=== PATIENT | male | born 1975 | race Caucasian/White ===

== ENCOUNTER 2024-08-12 09:15 | Outpatient (CLI) | payer BC, SELFPAY ==
--- OUTSIDE RECORDS SUMMARY | 2024-08-12 09:21 | XMS_ITS | Clinical Summary ---
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 Then use as needed for flares once clear. 454 Gram 2 06/10/2023 3:37 PM CDT 4 Active triamcinolone acetonide (KENALOG) 0.1 % Cream Apply to affected areas one to two times daily for up to two consecutive weeks. Then use as needed for flares once clear. 454 Gram 2 4 Active amLODIPine (NORVASC) 10 mg tablet Take 1 Tablet (10 mg) by mouth daily. 90 Tablet 1 01/03/2024 12:48 PM CDT 4 Active eszopiclone (LUNESTA) 2 mg Tablet Take 1 tablet by mouth 30-60 minutes prior to sleep study 1 Tablet 09/22/2023 4:16 PM CDT 4 Active cyclobenzaprine (FLEXERIL) 10 mg tablet Take 1 Tablet (10 mg) by mouth 2 times daily as needed for muscle spasm. 20 Tablet 09/22/2023 4:16 PM CDT 4 Active amLODIPine (NORVASC) 10 mg tablet Take 1 Tablet (10 mg) by mouth daily. 90 Tablet 1 07/01/2024 7:02 PM CDT 5 Active Encounters Date Type Department Care Team Description 08/05/2024 External Device Data [facility] Provider, Abstract 07/01/2024 External Device Data [facility] Provider, Abstract 05/27/2024 External Device Data [facility] Provider, Abstract 05/27/2024 External Device Data [facility] Provider, Abstract 05/24/2024 External Device Data [facility] Provider, Abstract 05/23/2024 External Device Data [facility] Provider, Abstract from Last 3 Months Immunizations Immunization Administration Dates Next Due ([place]Y)(12 YR UP) COVID- 19 VACCINE, MRNA, SPIKE PROTEIN, LNP, GUIDO(PF) 30 MCG/0.3 ML IM SUSP 11/30/2023,04/04/2023 INFLUENZA VACCINE QUADRIVALENT 6 MOS UP PF IM INFLUENZA VACCINE TRIVALENT SPLIT VIRUS, (6 MOS UP), 0.5ML (PF), IM 11/30/2023 Social History Tobacco Use Types Packs/Day Years Used Date Smoking Tobacco: Never Assessed Sex and Gender Information Value Date Recorded Sex Assigned at Not on file 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
[2024-09-02 14:23] VITALS: BMI 31.1
--- NOTE | 2024-09-02 14:23 | WPDHOMESLEEP ---
Sleep Study - Home Unattended Date of Study: 08/12/24 Ordering Provider: Sunshine Mims NP Interpreting Provider: Bernadette Vargas DO Home Sleep Study Type: Watch PAT Height: 1.83 m Weight: 104.326 kg Body Mass Index: 31.1 Neck Circumference (inches): 17 [place]: 0 Reason for Sleep Study snoring Sleep History The patient is a 48-year-old male that had a sleep study ordered by his primary care for evaluation of sleep apnea. The patient admits to snoring loudly and interruptions in breathing while asleep. He does choke or gasp at night. He does have trouble breathing on his back. He denies morning headaches. He does have a dry or sore mouth /throat in the morning. He denies nocturnal heartburn. He denies nocturia. He denies having trouble falling or staying asleep. He denies having trouble returning to sleep if he wakes up throughout the night. He denies any hypnotic or sedative use. He denies feeling anxious about sleep. He does not feel tired or sleepy during the day. He denies feeling tired in the morning. He denies having the urge to fall asleep during the day. He denies feeling drowsy while driving. He denies sleep paralysis, cataplexy and hypnagogic/ hypnopompic hallucinations. He denies clenching or grinding his teeth. He denies kicking or jerking his legs excessively. He denies having a restless feeling in his legs. He goes to bed at 11:30 p.m. on work days and at 1:30 a.m. on his days off. It takes him 15 minutes to fall asleep. He gets 6 hours and 45 minutes of sleep on work days and 9 hours and 45 minutes of sleep on his days off. His sleep is somewhat restorative on days off. He denies taking any planned naps. He denies dream enactment behavior. He denies sleep walking. He currently consumes 1-2 beers per week. He denies tobacco use. He denies recreational drug use. [facility] Family History Family History Father Heart disease, Onset Age: 70 CABG Grandparent Heart disease Grandparent Diabetes mellitus Social History Social History Smoking status: Never smoker Alcohol intake: current Alcohol use details: 1-2 beers per week Substance use: never Medications Home Medications ?Medication ?Instructions ?Recorded ?Confirmed ?Type cetirizine 10 mg tablet (Zyrtec) 10 mg PO DAILY PRN 09/19/23 09/19/23 History cyclobenzaprine 10 mg tablet 10 mg PO BID PRN muscle spasm #20 09/19/23 09/19/23 Rx tabs eszopiclone 2 mg tablet (Lunesta) 2 mg PO QHS #1 tablet 09/19/23 09/19/23 Rx amlodipine 10 mg tablet 10 mg PO DAILY #90 tabs 04/04/24 Rx prednisone 20 mg tablet 40 mg (2 x 20 mg) PO DAILY 5 days 08/31/24 Rx #10 tabs triamcinolone acetonide 0.1 % applic topical 08/31/24 History topical cream Sleep Procedure The sleep study was completed using ReferralMDT a technically adequate device with seven channels: peripheral arterial tone, actigraphy, body position, snore, respiratory movement, pulse oximetry, sleep staging, and heart rate. Prior to using the device, the patient received verbal and written instructions for its application and was provided with the help desk phone number for additional telephonic instruction with 24-hour availability of qualified personnel to answer questions. The study was scored using CMS guidelines. Sleep Architecture The total recording time is 6 hrs, 52 min. The total sleep time is 6 hrs, 26 min. Sleep latency is 15 minutes. REM latency is 45 minutes. The patient had 3 episodes of waking. Sleep architecture shows 18.1% deep sleep, 48.1% light sleep, and (as % Total Sleep Time) showed NREM (Light 48.1%; Deep 18.1%), and a 33.7% stage REM. The patient spent 68.1% of total sleep time in the supine position. Sleep efficiency was 93.69. Respiratory Analysis The overall AHI (pAHI 4%:) is 11.6. The overall AHI (pAHI 3%:) is 19.5. The central AHI is 0.6. The AHI was 8.4 in NREM and 41.1 in REM sleep. The AHI was 20.9 in Supine and 16.4 in Non-supine sleep. Percent of Samir Truong respirations is 0.0. Oximetry Data The oxygen desaturation index (TAMMY 4%:) is 13.2. The mean saturation is 94%, and the lowest saturation is 79%. Time spent with saturation < 88% is 2.1 minutes. Snoring Profile Snoring average intensity is 51 dB. The patient snored above 45 decibels for 246.3 minutes, 63.7% of sleep time. Cardiac Profile The average pulse rate is 58 beats per minutes. The lowest pulse rate is 48 bpm. The highest pulse rate reported is 96 bpm. Atrial fibrillation was not detected. Premature beats occur 0.1 per minute. Assessment and Plan Assessment and Plan (1) ERNIE (obstructive sleep apnea): Code(s): G47.33 - Obstructive sleep apnea (adult) (pediatric) Status: Acute Assessment and Plan: The patient had an overall AHI of 11.6 with desaturation down to 79%. This is consistent with mild sleep apnea. Due to the patient's hypertension, he qualifies for treatment. I recommend that the patient be prescribed AutoPAP 5-15 cm H2O, CPAP mask/filters/tubing and heated humidity. A mandibular advancement device is also an acceptable treatment option. This should be used with all episodes of sleep.? Compliance should be reviewed within 31-90 days of starting therapy for usage greater than 4 hours per night greater than 70% of the nights. The patient should be asked about symptoms such as?excessive daytime sleepiness, quality of sleep, decreased nocturia, increased?mental functioning such as memory, mood, and concentration. Data The data obtained during this sleep study is adequate for interpretation. Certification This sleep study has been reviewed by a board certified sleep medicine physician.
== END 2024-08-13 12:45 | disposition home or self-care (01) ==
LOC: ANHCSM 09:18
PROVIDERS: PCP Nurse Practitioner; Visit Provider Nurse Practitioner
DX: G47.9 Sleep disorder, unspecified (principal); G47.33 Obstructive sleep apnea (adult) (pediatric)
CPT/HCPCS: 95800

== ENCOUNTER 2024-08-31 13:03 | Emergency (ER) | payer BC, SELFPAY ==
--- NOTE | 2024-08-31 13:07 | ED_ITS ---
HPI - URI/Sore Throat General Chief Complaint: Upper Respiratory Infection Stated Complaint: Sore Throat Time Seen by Provider: 08/31/24 13:15 Source: patient Mode of arrival: ambulatory Limitations: no limitations History of Present Illness HPI Narrative: Arnaud is a 40-year-old male patient presenting to the clinic today with complaints of a 2 week history of a sore throat. Does note some sinus drainage in the back of the throat. Denies any chest pain or shortness of breath. No fevers, chills, body aches. Did have a sinus headache the 1st couple days of symptoms however that has resolved. Does not feel as though he has much sinus pressure at this time. When he blows his nose and coughs the phlegm is clear. In the morning time cough can be a little thicker and yellow color. MD elicited complaint: sore throat and nasal congestion Related Data Home Medications ?Medication ?Instructions ?Recorded ?Confirmed ?Last Taken ?Type cetirizine 10 mg tablet (Zyrtec) 10 mg PO DAILY PRN 09/19/23 09/19/23 Unknown History triamcinolone acetonide 0.1 % applic topical 08/31/24 Unknown History topical cream Allergies Allergy/AdvReac Type Severity Reaction Status Date / Time No Known Allergies Allergy Unverified 08/31/24 13:12 Review of Systems Review of Systems: Pertinent positives per HPI. Patient denies any fever, chills, rash, headache, visual changes, dizziness, cough, shortness of breath, chest pain, palpitations, nausea, vomiting, diarrhea, constipation, abdominal pain, or any urinary issues. PMFSH Family History Family History Father Heart disease, Onset Age: 70 CABG Grandparent Heart disease Grandparent Diabetes mellitus Social History Social History Smoking status: Never smoker Alcohol intake: current Alcohol use details: 1-2 beers per week Substance use: never Comments At the time of my signature, I reviewed and agree with the nursing past medical, surgical, social, and family history. There is no relevant family history pertinent to the patient complaint. Exam Narrative: General: Well-developed, well nourished, in no apparent distress Head: Normocephalic, atraumatic Eyes: Pupils equally round and reactive to light bilaterally, EOM intact, sclera and conjunctive clear, no discharge, lids normal Ears: TMs intact and clear, ear canals clear, no drainage, grossly hearing normal. Nose: Nares patent, clear nasal discharge, mild inflammation, no sinus tenderness. Mouth: Oral pharynx red without lesions or masses, good dentition, MMM. Postnasal drip Neck: Supple, trachea midline, no enlargement of anterior or posterior cervical nodes, no thyroid masses or goiter palpable. Cardio: Regular rate and rhythm, s1 and s2 normal, no murmur appreciated. Resp: Clear to auscultation bilaterally, no rhonchi, rales, wheezing or rubs Course Course Emergency Course: Portions of this record may have been created with voice recognition software. Level of Care: Express Care Visit Vital Signs Vital signs: Vital Signs Temperature 36.7 C 08/31/24 13:13 Pulse Rate 85 08/31/24 13:13 Respiratory Rate 16 08/31/24 13:13 Blood Pressure 143/107 H 08/31/24 13:13 Pulse Oximetry 100 08/31/24 13:13 Oxygen Delivery Room Air 08/31/24 13:13 Temperature 36.7 C 08/31/24 13:13 Pulse Rate 85 08/31/24 13:13 Respiratory Rate 16 08/31/24 13:13 Blood Pressure 143/107 H 08/31/24 13:13 Pulse Oximetry 100 08/31/24 13:13 Oxygen Delivery Room Air 08/31/24 13:13 Vital signs reviewed MDM - URI/Sore Throat MDM Narrative Medical decision making narrative: At the time of visit patient is resting comfortably on the exam table. Patient appears to be nontoxic. Labs: Strep test was negative in the clinic today. We will send strep for culture. Plan: I suspect patient has pharyngitis/postnasal drip. Prescription for pred nisone was sent to the pharmacy. Supportive measures were discussed with the patient and they voiced understanding discharge instructions and agrees to treatment plan. Return precautions reviewed Differential Diagnosis Differential diagnosis: Likely upper respiratory infection, otitis media, sinusitis, viral infection, bronchitis, influenza, pharyngitis and other (COVID) Lab Data Labs: Lab Results 08/31/24 Range/Units 13:18 POC Grp A Strep Screen Negative (Negative) Discharge Plan Discharge Clinical Impression: PND (post-nasal drip) Pharyngitis Qualifiers: Pharyngitis/tonsillitis etiology: unspecified etiology Qualified Code(s): J02.9 - Acute pharyngitis, unspecified Patient Disposition: Home Condition: Stable Instructions: Antibiotic Form, Pharyngitis (ED), Postnasal Drip (DC) Additional Instructions: Strep test was negative in the clinic today. We will send strep for culture. Take prescription medications only as prescribed-prednisone Increase fluids and stay well hydrated Tylenol/motrin for pain/fever Flonase and OTC antihistamines as directed Vicks vapor rub to open sinuses Sinus rinses for congestion Cepacol spray, cough drops, throat lozenges, warm tea with honey/lemon, gargle salt water to soothe throat BRAT diet for diarrhea Clear liquids x 24 hours then advance as tolerated for nausea/vomiting Go to the ED if you develop a worsening in your condition- high fever not controlled by Tylenol or Motrin, dehydration, weakness, lethargy, shortness of breath, or chest pain. Follow up with your PCP in 3-5 days if symptoms persist. Patient Language: South Korean Prescriptions: New prednisone 20 mg tablet 40 mg PO DAILY 5 Days Qty: 10 0RF No Action triamcinolone acetonide 0.1 % cream TOPICAL cetirizine [Zyrtec] 10 mg tablet 10 mg PO DAILY PRN cyclobenzaprine 10 mg tablet 10 mg PO BID PRN (Reason: muscle spasm) Qty: 20 0RF eszopiclone [Lunesta] 2 mg tablet 2 mg PO QHS Qty: 1 0RF Rx Instructions: Take 1 tablet 30-60 minutes prior to sleep study amlodipine 10 mg tablet 10 mg PO DAILY Qty: 90 1RF Follow-up/Referrals: Sunshine Mims NP [Primary Care Provider] - Time of Disposition: 13:25 Quality NIHSS Nursing Documentation ED NIHSS nursing documentation: reviewed/agree
[2024-08-31 13:13] VITALS: BP 143/107; PULSE 85; RESP 16; TEMP 36.7; O2SAT 100
[2024-08-31 13:20] LABS: EDSTREPNEGPOS1 Negative (Negative)
== END 2024-08-31 13:32 | disposition home or self-care (01) ==
PROVIDERS: Emergency Provider Nurse Practitioner Family; PCP Nurse Practitioner
DX: R09.82 Postnasal drip (principal); J02.9 Acute pharyngitis, unspecified
CPT/HCPCS: 87081; 87880; 99213; G0463

== ENCOUNTER 2024-10-24 08:01 | Outpatient (CLI) | payer BC, SELFPAY ==
--- OUTSIDE RECORDS SUMMARY | 2024-10-24 08:06 | XMS_ITS | Clinical Summary ---
Author Organization [facility] Address [address] [place] [address] Care Team Providers Care Chef Passenger Vessel Name Role Phone Unavailable Primary Care Provider [...] Tablet 09/22/2023 4:16 PM CDT 4 Active triamcinolone acetonide (KENALOG) 0.1 % Cream Apply to affected areas one to two times daily for up to two consecutive weeks. Take a small break and repeat as necessary for flares. Avoid the face, axilla, and groin. 454 Gram 5 08/30/2024 3:55 PM CDT 5 Active amLODIPine (NORVASC) 10 mg tablet Take 1 Tablet (10 mg) by mouth daily. 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 Gender Identity Not on file Sexual Orientation Not on file Plan of Treatment Health Maintenance Due Date Last Done Comments DTAP/TDAP/TD VACCINES (1 - Tdap) 10/13/1994 HEPATITIS B VACCINES (1 of 3 - 19+ 3-dose series) 10/13/1994 COLORECTAL SCREENING 10/13/2020 Colorectal Cancer Screening 10/13/2020 FIT-DNA Q 3 years 10/13/2020 FIT/FOBT Q 1 year 10/13/2020 Flex Sig/CT Colonography Q 5 years 10/13/2020 INFLUENZA VACCINE (#1) 2024 11/30/2023, 2023 COVID-19 Vaccine Completed 11/30/2023, 04/04/2023 Insurance RX [employer] Commercial RX DRAPER PLANS (INTERNAL) [facility] RX DRAPER PLANS (INTERNAL) [facility] [employer] [facility]
[2024-10-24 13:08] LABS: Hematocrit 43.4 % (42.0-52.0); Hemoglobin 14.4 g/dL (14.0-18.0); Immature Granulocyte Percent A 0.2 % (0-0.5); Lymphocytes Absolute Auto 2.38 K/mm3 (0.9-3.2); Mean Corpuscular HGB Conc 33.2 g/dl (32-36); Mean Corpuscular Hemoglobin 30.8 pg (26-34); Mean Corpuscular Volume 92.7 fl (80-100); Nucleated Red Blood Cells Absolute Auto 0.000 K/mm3 (0.0-0.012); Nucleated Red Blood Cells Perc 0.0 % (0.0-0.2); Platelet Count Result 316 k/mm3 (150-375); Red Blood Count 4.68 M/mm3 (4.6-6.20); White Blood Count 5.9 K/mm3 (4.5-10.0)
[2024-10-24 13:19] LABS: Alanine Aminotransferase 35 U/L (6-50); Albumin Level 4.4 g/dL (3.5-5.1); Alkaline Phosphatase 60 U/L (38-126); Anion Gap 9 mmol/L (4-12); Aspartate Amino Transferase 47 U/L (17-59); Bilirubin,Total 0.8 mg/dL (0.2-1.3); Blood Urea Nitrogen 11 mg/dL (9-20); Calcium 9.2 mg/dL (8.4-10.2); Carbon Dioxide 29 mmol/L (22-30); Chloride 103 mmol/L (98-107); Cholesterol 197 mg/dL (0-200); Estimated Glomerular Filt Rate > 60; Glucose 88 mg/dL (65-110); HDL Direct 49 mg/dL; Potassium 3.9 mmol/L (3.4-5.0); Sodium 141 mmol/L (137-145); Total Protein 7.5 g/dL (6.3-8.2); Triglycerides 85 mg/dL (<150)
== END 2024-10-24 08:02 | disposition home or self-care (01) ==
LOC: ANHGOSHLAB 08:02
PROVIDERS: PCP Nurse Practitioner; Visit Provider Nurse Practitioner
DX: I10 Essential (primary) hypertension (principal)
CPT/HCPCS: 36415; 80053; 80061; 85025